=== PATIENT | female | born 1970 | race Caucasian/White ===

== ENCOUNTER 2024-07-25 15:33 | Emergency (ER) | payer BC ==
[~2024-07-25] VITALS: Ht 165.1 cm; Wt 99.8 kg
[~2024-07-25 15:33] MED LIST: ASPI-618 PO; ATOR40TA PO; GABA-532 PO; LOSA50TA39 PO; MELA10TA PO; NIFE-35 PO; OMEP-99 PO; QUET25TA PO
[2024-07-25 16:48] VITALS: BP 164/99; O2SAT 99
== END 2024-07-25 16:55 | disposition home or self-care (01) ==
LOC: ER 15:35
DX: M79.672 Pain in left foot (principal); M79.671 Pain in right foot; I25.2 Old myocardial infarction; Z98.890 Other specified postprocedural states; Z90.49 Acquired absence of other specified parts of digestive tract; Z79.82 Long term (current) use of aspirin; Z79.899 Other long term (current) drug therapy; Z60.2 Problems related to living alone; Z88.1 Allergy status to other antibiotic agents
CPT/HCPCS: A4606; A4663